=== PATIENT | female | born 1980 | race Caucasian/White ===

== ENCOUNTER 2020-04-10 12:21 | Emergency (ER) | payer BC, OTHER ==
[~2020-04-10] VITALS: Ht 152.4 cm; Wt 88.5 kg
[2020-04-10 12:31] VITALS: Ht 152.4 cm; Wt 88.5 kg
[2020-04-10 12:57] LABS: BASOPHIL % 0.2 % (0-2); PLATELET COUNT 234 x10^3mcL (130-400)
[2020-04-10 12:59] LABS: RED CELL DISTRIBUTION WIDTH 14.7 % (11.5-14.5)
[2020-04-10 13:02] LABS: CALCIUM 10.5 mg/dL (8.5-10.1); CREATININE SERUM 1.9 mg/dL (0.6-1.0); POTASSIUM SERUM 4.5 mmol/L (3.5-5.1)
[2020-04-10 13:11] LABS: ALBUMIN 3.7 g/dL (3.4-5.0); BILIRUBIN TOTAL 2.66 mg/dL (0.20-1.00); TOTAL PROTEIN, SERUM 7.9 g/dL (6.4-8.2)
[2020-04-10] MEDS ORDERED: URSO 250250 MG PO (14:00)
[2020-04-10] MEDS ORDERED: REGLAN5 M1 PO (14:01)
[2020-04-10] MEDS ORDERED: MYCOPHENOLATE250 MG PO (14:02)
[2020-04-10] MEDS ORDERED: ENVARSUS XR1 MG PO (14:03)
[2020-04-10] MEDS ORDERED: FLUOXETINE40 MG PO (14:04)
[2020-04-10] MEDS ORDERED: PANTOPRAZOLE SO40 M1 PO (14:04)
[2020-04-10] MEDS ORDERED: METRONIDAZOLE500 M1 PO (14:05)
[2020-04-10] MEDS ORDERED: CIPRO500 MG PO (14:05)
[2020-04-10] MEDS ORDERED: ROXICODONE5 MG PO (14:06)
[2020-04-10] MEDS ORDERED: B-1100 MG PO (14:07)
[2020-04-10 16:16] LABS: UA SPECIFIC GRAVITY >=1.030 (1.005-1.035); microscopic required? YES; urine erythrocyte NEGATIVE (NEGATIVE)
[2020-04-10 19:08] VITALS: BP 114/79
== END 2020-04-10 19:19 | disposition short-term general hospital (02) ==
LOC: ED 12:21
PROVIDERS: Emergency Medicine
DX: K72.90 Hepatic failure, unspecified without coma (principal); R10.84 Generalized abdominal pain; N18.9 Chronic kidney disease, unspecified; Z88.5 Allergy status to narcotic agent; Z98.890 Other specified postprocedural states
CPT/HCPCS: J2270; J2405; J2543; J3010; J3490; J7030; Q0162; U0003-CS

== ENCOUNTER 2020-06-06 07:06 | Emergency (ER) | payer BC, OTHER ==
[~2020-06-06 07:06] MED LIST: B-1100 MG PO; CIPRO500 MG PO; ENVARSUS XR1 MG PO; FLUOXETINE40 MG PO; METRONIDAZOLE500 M1 PO; MYCOPHENOLATE250 MG PO; PANTOPRAZOLE SO40 M1 PO; REGLAN5 M1 PO; ROXICODONE5 MG PO; URSO 250250 MG PO
[2020-06-06 07:17] VITALS: Ht 152.4 cm
[2020-06-06 08:40] LABS: BASOPHIL % 0.6 % (0-2); PLATELET COUNT 216 x10^3mcL (130-400); RED CELL DISTRIBUTION WIDTH 13.5 % (11.5-14.5)
[2020-06-06 09:36] LABS: CALCIUM 9.7 mg/dL (8.5-10.1); CARBON DIOXIDE 26.1 mmol/L (21-32); CREATININE SERUM 1.3 mg/dL (0.6-1.0); POTASSIUM SERUM 4.3 mmol/L (3.5-5.1)
[2020-06-06 09:41] LABS: ALBUMIN 3.6 g/dL (3.4-5.0); BILIRUBIN TOTAL 0.4 mg/dL (0.20-1.00); TOTAL PROTEIN, SERUM 7.3 g/dL (6.4-8.2)
[2020-06-06 11:02] LABS: microscopic required? YES; urine erythrocyte NEGATIVE (NEGATIVE)
[2020-06-06 11:50] VITALS: BP 128/79
== END 2020-06-06 11:50 | disposition home or self-care (01) ==
LOC: ED 07:06
PROVIDERS: Emergency Medicine
DX: K52.89 Other specified noninfective gastroenteritis and colitis (principal); R10.10 Upper abdominal pain, unspecified; R19.7 Diarrhea, unspecified; K50.90 Crohn's disease, unspecified, without complications; K72.90 Hepatic failure, unspecified without coma; Z88.5 Allergy status to narcotic agent; Z90.710 Acquired absence of both cervix and uterus; Z91.018 Allergy to other foods
CPT/HCPCS: J2270; J2405; J7030

== ENCOUNTER 2020-06-08 06:57 | Emergency (ER) | payer OTHER ==
[~2020-06-08] VITALS: Ht 152.4 cm; Wt 89.1 kg
[2020-06-08 07:02] VITALS: Ht 152.4 cm; Wt 89.1 kg
[2020-06-08 08:04] LABS: BASOPHIL % 0.4 % (0-2); PLATELET COUNT 259 x10^3mcL (130-400); RED CELL DISTRIBUTION WIDTH 13.4 % (11.5-14.5)
[2020-06-08 08:18] LABS: ALBUMIN 4.2 g/dL (3.4-5.0); BILIRUBIN TOTAL 0.67 mg/dL (0.20-1.00); CALCIUM 10.2 mg/dL (8.5-10.1); CARBON DIOXIDE 26.6 mmol/L (21-32); CREATININE SERUM 1.4 mg/dL (0.6-1.0); POTASSIUM SERUM 3.9 mmol/L (3.5-5.1); TOTAL PROTEIN, SERUM 8.4 g/dL (6.4-8.2)
[2020-06-08 09:49] LABS: UA SPECIFIC GRAVITY >=1.030 (1.005-1.035); microscopic required? YES; urine erythrocyte NEGATIVE (NEGATIVE)
[2020-06-08 12:30] VITALS: BP 118/72
== END 2020-06-08 12:30 | disposition home or self-care (01) ==
LOC: ED 06:57
PROVIDERS: Emergency Medicine
DX: A04.72 Enterocolitis due to Clostridium difficile, not specified as recurrent (principal); N18.9 Chronic kidney disease, unspecified; Z90.89 Acquired absence of other organs; Z90.49 Acquired absence of other specified parts of digestive tract; Z90.710 Acquired absence of both cervix and uterus; Z88.5 Allergy status to narcotic agent; Z91.018 Allergy to other foods
CPT/HCPCS: 87046; 87046-59; J2405; J3010; J7030

== ENCOUNTER 2020-07-06 09:14 | Inpatient (IN) | payer OTHER ==
[~2020-07-06] VITALS: Ht 152.4 cm; Wt 90.5 kg
[2020-07-06 10:09] LABS: BASOPHIL % 0.4 % (0-2); PLATELET COUNT 269 x10^3mcL (130-400); RED CELL DISTRIBUTION WIDTH 13.1 % (11.5-14.5)
[2020-07-06 10:30] LABS: CALCIUM 10.5 mg/dL (8.5-10.1); CARBON DIOXIDE 19.7 mmol/L (21-32); CREATININE SERUM 1.6 mg/dL (0.6-1.0)
[2020-07-06 10:35] LABS: ALBUMIN 3.6 g/dL (3.4-5.0); BILIRUBIN TOTAL 0.94 mg/dL (0.20-1.00); TOTAL PROTEIN, SERUM 7.6 g/dL (6.4-8.2)
[2020-07-06 15:53] VITALS: BP 136/94
[2020-07-06 15:59] VITALS: Ht 152.4 cm; Wt 90.5 kg
[2020-07-06 20:38] VITALS: BP 107/72
[2020-07-07 05:14] VITALS: BP 103/73
[2020-07-07 07:57] LABS: BASOPHIL % 0.7 % (0-2); PLATELET COUNT 222 x10^3mcL (130-400); RED CELL DISTRIBUTION WIDTH 13.4 % (11.5-14.5)
[2020-07-07 08:03] VITALS: BP 121/81
[2020-07-07 08:36] LABS: CARBON DIOXIDE 23.7 mmol/L (21-32); CREATININE SERUM 1.2 mg/dL (0.6-1.0); MAGNESIUM 1.8 mg/dL (1.8-2.4); PHOSPHOROUS 3.4 mg/dL (2.5-4.9); POTASSIUM SERUM 4.1 mmol/L (3.5-5.1)
[2020-07-07 12:48] VITALS: BP 123/70
[2020-07-07 14:29] VITALS: BP 123/70
[2020-07-07 16:09] VITALS: BP 142/82
== END 2020-07-07 18:19 | disposition home or self-care (01) | DRG 948 ==
LOC: ED 09:14 → DU 14:15 → MU 14:15 → DU 21:32
PROVIDERS: Emergency Medicine; ADMIT Hospitalist; ATTEND Hospitalist
DX: G89.18 Other acute postprocedural pain (principal); Z94.4 Liver transplant status; K50.90 Crohn's disease, unspecified, without complications; Z88.8 Allergy status to other drugs, medicaments and biological substances; Z88.5 Allergy status to narcotic agent; Z90.710 Acquired absence of both cervix and uterus; F32.9 Major depressive disorder, single episode, unspecified; N18.9 Chronic kidney disease, unspecified
CPT/HCPCS: G0378; J0780; J1644; J2270; J2405; J3490; J7030; J7517; Q0092

== ENCOUNTER 2020-08-01 09:19 | Emergency (ER) | payer OTHER ==
[~2020-08-01] VITALS: Ht 152.4 cm; Wt 92.1 kg
[2020-08-01 09:25] VITALS: Ht 152.4 cm; Wt 92.1 kg
[2020-08-01 10:22] LABS: BASOPHIL % 0.5 % (0-2); PLATELET COUNT 229 x10^3mcL (130-400); RED CELL DISTRIBUTION WIDTH 13.9 % (11.5-14.5)
[2020-08-01 11:09] LABS: CALCIUM 9.8 mg/dL (8.5-10.1); CARBON DIOXIDE 22.9 mmol/L (21-32); CREATININE SERUM 1.3 mg/dL (0.6-1.0); POTASSIUM SERUM 4.2 mmol/L (3.5-5.1)
[2020-08-01 11:13] LABS: BILIRUBIN TOTAL 2.43 mg/dL (0.20-1.00); TOTAL PROTEIN, SERUM 7.3 g/dL (6.4-8.2)
[2020-08-01 12:40] VITALS: BP 115/80
== END 2020-08-01 12:40 | disposition home or self-care (01) ==
LOC: ED 09:19
PROVIDERS: Emergency Medicine
DX: K42.9 Umbilical hernia without obstruction or gangrene (principal); E80.6 Other disorders of bilirubin metabolism; N18.9 Chronic kidney disease, unspecified; Z88.5 Allergy status to narcotic agent; Z90.89 Acquired absence of other organs; Z90.710 Acquired absence of both cervix and uterus
CPT/HCPCS: J2270; J2405; J7030

== ENCOUNTER 2020-08-27 11:55 | Emergency (ER) | payer OTHER ==
[~2020-08-27] VITALS: Ht 152.4 cm; Wt 90.7 kg
[2020-08-27 12:04] VITALS: Ht 152.4 cm; Wt 90.7 kg
[2020-08-27 13:37] LABS: BASOPHIL % 0.6 % (0-2); PLATELET COUNT 280 x10^3mcL (130-400)
[2020-08-27 13:41] LABS: RED CELL DISTRIBUTION WIDTH 14.7 % (11.5-14.5)
[2020-08-27 13:52] LABS: CALCIUM 9.8 mg/dL (8.5-10.1); CREATININE SERUM 1.1 mg/dL (0.6-1.0); POTASSIUM SERUM 4.1 mmol/L (3.5-5.1)
[2020-08-27 13:56] LABS: ALBUMIN 3.5 g/dL (3.4-5.0); BILIRUBIN TOTAL 0.99 mg/dL (0.20-1.00); TOTAL PROTEIN, SERUM 7.1 g/dL (6.4-8.2)
[2020-08-27 15:28] VITALS: BP 134/87
== END 2020-08-27 15:29 | disposition home or self-care (01) ==
LOC: ED 11:55
PROVIDERS: Emergency Medicine
DX: A08.4 Viral intestinal infection, unspecified (principal)
CPT/HCPCS: 87046; 87046-59; J2270; J2405; J3490; J7030

== ENCOUNTER 2020-08-28 01:21 | Inpatient (IN) | payer OTHER ==
[~2020-08-28] VITALS: Ht 152.4 cm; Wt 90.7 kg
[2020-08-28 01:26] VITALS: Ht 152.4 cm; Wt 90.7 kg
[2020-08-28 02:28] LABS: BASOPHIL % 0.5 % (0-2); PLATELET COUNT 287 x10^3mcL (130-400)
[2020-08-28 02:30] LABS: RED CELL DISTRIBUTION WIDTH 14.9 % (11.5-14.5)
[2020-08-28 02:35] LABS: CALCIUM 9.3 mg/dL (8.5-10.1); CARBON DIOXIDE 27.3 mmol/L (21-32); CREATININE SERUM 1.3 mg/dL (0.6-1.0); POTASSIUM SERUM 4.7 mmol/L (3.5-5.1)
[2020-08-28 02:39] LABS: ALBUMIN 3.1 g/dL (3.4-5.0); BILIRUBIN TOTAL 0.4 mg/dL (0.20-1.00); TOTAL PROTEIN, SERUM 6.8 g/dL (6.4-8.2)
[2020-08-28 11:39] VITALS: BP 114/77
[2020-08-28 12:58] VITALS: BP 112/72
[2020-08-28 13:58] VITALS: BP 116/74
[2020-08-28 18:07] VITALS: BP 122/83
[2020-08-28 21:24] VITALS: BP 110/74
[2020-08-29 04:45] VITALS: BP 124/73
[2020-08-29 06:34] LABS: BILIRUBIN TOTAL 0.6 mg/dL (0.20-1.00); CALCIUM 9.7 mg/dL (8.5-10.1); CARBON DIOXIDE 26.8 mmol/L (21-32); CREATININE SERUM 1.1 mg/dL (0.6-1.0); MAGNESIUM 1.7 mg/dL (1.8-2.4); POTASSIUM SERUM 4.3 mmol/L (3.5-5.1); TOTAL PROTEIN, SERUM 6.4 g/dL (6.4-8.2)
[2020-08-29 06:38] LABS: BASOPHIL % 0.4 % (0-2); PLATELET COUNT 244 x10^3mcL (130-400); RED CELL DISTRIBUTION WIDTH 14.1 % (11.5-14.5)
[2020-08-29 08:42] VITALS: BP 115/75
[2020-08-29 13:11] VITALS: BP 120/83
[2020-08-29 17:50] VITALS: BP 109/77
[2020-08-30 05:01] VITALS: BP 127/83
[2020-08-30 07:39] LABS: BASOPHIL % 0.5 % (0-2); PLATELET COUNT 282 x10^3mcL (130-400); RED CELL DISTRIBUTION WIDTH 14.2 % (11.5-14.5)
[2020-08-30 08:02] LABS: ALBUMIN 3.6 g/dL (3.4-5.0); ALKALINE PHOSPHATASE 147 U/L (46-116); ALT/SGPT 68 U/L (14-59); AST/SGOT 50 U/L (15-37); BILIRUBIN TOTAL 0.7 mg/dL (0.20-1.00); CARBON DIOXIDE 26.9 mmol/L (21-32); CHLORIDE SERUM 104 mmol/L (98-107); GFR1 > 60 mL/min; GLUCOSE SERUM 88 mg/dL (74-106); LIPASE 53 IU/L (73-393); POTASSIUM SERUM 3.7 mmol/L (3.5-5.1); SODIUM SERUM 140 mmol/L (136-145); TOTAL PROTEIN, SERUM 7.7 g/dL (6.4-8.2)
[2020-08-30 08:21] VITALS: BP 133/90
[2020-08-30 12:02] VITALS: BP 125/94
[2020-08-30 15:09] VITALS: BP 146/87
== END 2020-08-30 16:13 | disposition home or self-care (01) | DRG 372 ==
LOC: ED 01:21 → DU 05:30 → MU 05:30 → DU 09:22 → MU 08-30 10:14
PROVIDERS: Emergency Medicine; Hospitalist; ADMIT Hospitalist; ATTEND Hospitalist
DX: A04.72 Enterocolitis due to Clostridium difficile, not specified as recurrent (principal); Z94.4 Liver transplant status; F32.9 Major depressive disorder, single episode, unspecified; N18.9 Chronic kidney disease, unspecified; E86.0 Dehydration; R10.9 Unspecified abdominal pain; Z88.5 Allergy status to narcotic agent; Z91.018 Allergy to other foods; Z90.710 Acquired absence of both cervix and uterus; Z90.49 Acquired absence of other specified parts of digestive tract; Z98.891 History of uterine scar from previous surgery; Z79.899 Other long term (current) drug therapy; Z79.01 Long term (current) use of anticoagulants
CPT/HCPCS: G0378; J2270; J2405; J3475; J7030; J7517; J8597; Q0092

== ENCOUNTER 2020-11-09 06:14 | Emergency (ER) | payer OTHER ==
[~2020-11-09] VITALS: Ht 152.4 cm; Wt 90.7 kg
[2020-11-09 06:31] VITALS: Ht 152.4 cm; Wt 90.7 kg
[2020-11-09 08:52] LABS: BASOPHIL % 0.5 % (0.2-1.3); PLATELET COUNT 217 x10^3mcL (179-408)
[2020-11-09 09:15] LABS: CALCIUM 10.3 mg/dL (8.5-10.1); CARBON DIOXIDE 23.6 mmol/L (21-32); CREATININE SERUM 1.3 mg/dL (0.6-1.0); POTASSIUM SERUM 3.8 mmol/L (3.5-5.1)
[2020-11-09 09:20] LABS: BILIRUBIN TOTAL 0.9 mg/dL (0.20-1.00); TOTAL PROTEIN, SERUM 7.6 g/dL (6.4-8.2)
[2020-11-09 13:05] VITALS: BP 112/74
== END 2020-11-09 13:05 | disposition home or self-care (01) ==
LOC: ED 06:14
PROVIDERS: Emergency Medicine
DX: R10.811 Right upper quadrant abdominal tenderness (principal); N18.9 Chronic kidney disease, unspecified; Z90.710 Acquired absence of both cervix and uterus; Z98.890 Other specified postprocedural states; Z90.89 Acquired absence of other organs; Z88.5 Allergy status to narcotic agent; Z91.018 Allergy to other foods; Z94.4 Liver transplant status
CPT/HCPCS: J2270; J2405; Q9967

== ENCOUNTER 2020-12-27 06:04 | Emergency (ER) | payer OTHER ==
[~2020-12-27] VITALS: Ht 152.4 cm; Wt 93.4 kg
[2020-12-27 06:14] VITALS: Ht 152.4 cm; Wt 93.4 kg
[2020-12-27 07:19] LABS: BASOPHIL % 0.7 % (0.2-1.3); PLATELET COUNT 294 x10^3mcL (179-408)
[2020-12-27 07:36] LABS: CALCIUM 9.1 mg/dL (8.5-10.1); CARBON DIOXIDE 24.8 mmol/L (21-32); CREATININE SERUM 1.2 mg/dL (0.6-1.0); POTASSIUM SERUM 4.5 mmol/L (3.5-5.1)
[2020-12-27 07:41] LABS: ALBUMIN 3.5 g/dL (3.4-5.0); BILIRUBIN TOTAL 0.28 mg/dL (0.20-1.00); RED CELL DISTRIBUTION WIDTH 16.2 % (12.3-17.7); TOTAL PROTEIN, SERUM 7.4 g/dL (6.4-8.2)
[2020-12-27 08:38] LABS: microscopic required? YES; urine erythrocyte NEGATIVE (NEGATIVE)
[2020-12-27 12:09] VITALS: BP 119/78
== END 2020-12-27 12:09 | disposition home or self-care (01) ==
LOC: ED 06:04
PROVIDERS: Emergency Medicine
DX: R10.9 Unspecified abdominal pain (principal); R11.2 Nausea with vomiting, unspecified; Z87.448 Personal history of other diseases of urinary system; Z94.4 Liver transplant status; N18.9 Chronic kidney disease, unspecified; Z90.710 Acquired absence of both cervix and uterus; Z90.89 Acquired absence of other organs; Z98.890 Other specified postprocedural states; Z88.5 Allergy status to narcotic agent; Z91.018 Allergy to other foods
CPT/HCPCS: J1885; J2405; J3010; J7030